=== PATIENT | female | born 1965 | race Caucasian/White ===

== ENCOUNTER 2025-06-03 15:53 | Emergency (ER) | payer OTHER, SELFPAY ==
[2025-06-03 15:56] VITALS: BP 138/80
--- NOTE | 2025-06-03 16:14 | ED.GENMED ---
History of Present Illness
General
Chief Complaint: Musculo-Skeletal Complaint
Source: patient
Time Seen by Provider: 06/03/25 16:09
History of Present Illness
History of Present Illness:
60-year-old female presenting to the emergency department for evaluation after she excellently stepped on a piece of glass sustaining laceration to the plantar surface just underneath the right great toe. Patient's daughter was able to remove the
piece of glass and they were able to clean the area with some hydrogen peroxide. Patient states she is experiencing persistent paresthesia to the great toe since and was concern for possible retained foreign body. She is unsure of her last tetanus
vaccine. No other injuries were sustained.
Past History
Past History
ED Past Medical History: HTN and Other (aoustic neuroma)
ED Past Surgical History: Other (craniotomy w/ mesh)
Social History
Tobacco: Non-smoker
Alcohol: Occasional
Drug: None
Personal:
Living: with family
Employment: Employed
Family History
Family History: Other
Review of Systems
Review of Systems
All Other Systems: ROS reviewed and negative except as documented in HPI and ROS
Phy Exam
Physical Exam
Physical Exam:
GENERAL: Alert , in no apparent distress
EYE: conjunctiva clear
Head: Normocephalic atraumatic
NECK: Supple,
ENT: mmm.
LUNGS: no acute respiratory distress
NEUROLOGICAL: Alert and oriented
SKIN: Warm and dry,horizontally oriented approximately 1 cm superficial laceration along the proximal crease of the great toe at the base of the proximal phalanx. No active bleeding
MUSCULOSKELETAL: well perfused. Patient able to flex and extend great toe. Sensation grossly intact to light touch
PSYCH: Normal and appropriate interaction.
Scores
Heart Failure Risk
Heart Failure Risk Score: Not Applicable
Heart Score for Chest Pain Patients
STEMI patient?: Not applicable
Withdrawal Assessment of Alcohol
Withdrawal Assessment Completed?: Not applicable
Course
Orders/Labs/Results
Orders:
Orders
06/03/25 16:09
CR Foot - Right Min 3 Views Urgent
Comment:
Reason For Exam: possible FB
06/03/25 16:15
Tetanus/Diphth/Acelpertussis [Adacel] 0.5 ml IM .ONCE ONE
Vital Signs
Initial and Last Documented VS:
Initial Vital Signs
Temp Pulse Resp BP Pulse Ox
98.2 F 110 18 138/80 95
06/03/25 15:56 06/03/25 15:56 06/03/25 15:56 06/03/25 15:56 06/03/25 15:56
Last Documented Vital Signs
Temp Pulse Resp BP Pulse Ox
98.2 F 84 18 130/76 97
06/03/25 15:56 06/03/25 17:04 06/03/25 17:04 06/03/25 17:04 06/03/25 17:04
Procedures
Laceration Closure
Right First Toe:
Status of Wound: clean
Size of Wound in cm: 1
Description of Wound Edges: sharp
Preparation: cleaned with saline
Type of Closure: Dermabond-skin glue
MDM/Problems Addressed
Differential Diagnosis Includes:
Superficial laceration
Retained foreign body
Less concern for fracture
Tendon and/or nerve laceration
MDM/Problems Addressed:
60-year-old female presenting to the emergency department for evaluation following an accidental laceration to the right great toe. No other injuries were sustained. Will update patient's tetanus. X-ray ordered to rule out foreign body. Will
irrigate wound with normal saline. Given the location of the laceration it would likely be a very difficult laceration repair so will close the wound with Dermabond. Wound care and dressings recommended.
*Radiology
Radiology exam reviewed: radiology read reviewed
*Pulse Oximetry
SaO2: 95
Oxygen Mode of Delivery: Room air
Patient hypoxic: no
*Critical Care Note
Total Time (30-74mins, 75-104mins- exclusive of procedures): Not Applicable
Patient Management
Escalation/DeEscalation of care consider admission/obs:
Wound was irrigated with copious normal saline. I was unable to visualize any foreign body. Will cover with a 5-day course of Keflex. patient advised on wound care. Otherwise stable for discharge home.
ED Attending Note
-
Portions of this chart may have been created with voice recognition software.� Occasional wrong word or��sound alike� substitutions may have occurred due to the inherent limitations of voice recognition software.
Discharge Plan
Departure
Patient Disposition: Home (Routine Discharge)
Date of Disposition: 06/03/25
Time of Disposition: 17:06
Patient with high blood pressure during this ER visit?: Yes
Discharge Problem:
Laceration of great toe of right foot
Instructions: Suture care - Skin Glue
Prescriptions:
New
cephalexin 500 mg tablet
500 mg PO BID 5 Days Qty: 10 0RF
No Action
Claritin
10 mg PO DAILY
hydrocodone-acetaminophen 1 TABLET tablet
1 tab PO Q4HPRN PRN (Reason: rib pain) Qty: 10 0RF
Referrals:
Suman Gaxiola MD [Active, Internal Medicine]
Interventions
Interventions:
*Risk Screen - Suicide Last Done: 06/03/25 16:10
*General Assessment Last Done: 06/03/25 16:10
*Neglect/Abuse Screening Last Done: 06/03/25 16:10
*ED- Fall Risk Assessment Last Done: 06/03/25 16:10
*ED COVID-19 Vaccine History Last Done: 06/03/25 16:10
*Nursing Disposition Last Done: 06/03/25 17:31
ED-Musculoskeletal Assessment Last Done: 06/03/25 16:10
Discharge Date and Time
Discharge Date/Time: 06/03/25 17:31
Print Language: IRAQI
[2025-06-03] MEDS: ADACEL 0.5 ML IM (16:33)
[2025-06-03 17:04] VITALS: BP 130/76
== END 2025-06-03 17:31 | disposition home or self-care (01) ==
LOC: EMR 15:53
PROVIDERS: EMERGENCY PHYSICIAN Emergency Medicine; FAMILY PHYSICIAN Family Medicine
DX: S91.111A Laceration without foreign body of right great toe without damage to nail, initial encounter (principal); W25.XXXA Contact with sharp glass, initial encounter; Z23 Encounter for immunization; R03.0 Elevated blood-pressure reading, without diagnosis of hypertension
CPT/HCPCS: 99283; 12001; 90471; 73630; 90715